=== PATIENT | female | born 1995 | race Caucasian/White ===

== ENCOUNTER 2022-07-16 04:14 | Inpatient (IN) | payer BC ==
[~2022-07-16] VITALS: Ht 160 cm; Wt 68.9 kg
--- NOTE | 2022-07-16 09:49 | PR ---
[facility] [address] [facility] [place], [place] [address] Signed Progress Notes IP Datetime Report Generated by EMERY: 07/16/2022 09:49 PROGRESS NOTES: [id number] Impression: Normal Progression of Labor Procedures: Artificial ROM; Sterile Vag Exam Plan: Continue Present Management VITAL SIGNS: [id number] Vital Signs: Reviewed; Within Normal Limits EXAM: [id number] Dilatation: 4.0 Effacement: 100 Station: -1 Contractions: q 1 to 4 min MEMBRANES: [id number] Comments: Comfortable after epidural. Progressing well. Will continue. FETUS A: [id number] FHR Baseline: 130 Variability: Moderate 6-25bpm Accelerations: 15X15 Decelerations: None FHR Category: Category I Presentation: Vertex Comments on Fetus A: no evidence of metabolic acidosis FETUS B: [id number] Signing Physician: Ana Stout MD Copies: ~ *Electronically Signed* 07/16/22 0949 ANA STOUT MD PATIENT NAME: KATHRINJAYSON MARRERO PROGRESS NOTE DATE OF : [birth year] PHYSICIAN: ANA STOUT MD RPT #: [id number] REPORT IS CONFIDENTIAL AND NOT TO BE RELEASED WITHOUT AUTHORIZATION
--- NOTE | 2022-07-16 12:15 | PR ---
[facility] [address] [facility] [place], [place] [address] Signed Progress Notes IP Datetime Report Generated by CPN: 07/16/2022 12:15 PROGRESS NOTES: [id number] Impression: Reassuring Heart Rate Procedures: Sterile Vag Exam Plan: Continue Present Management Other Plans: more position changes VITAL SIGNS: [id number] Vital Signs: Reviewed; Within Normal Limits EXAM: [id number] Dilatation: 4.0 Effacement: 100 Station: -1 Contractions: q 1 to 4 min MEMBRANES: [id number] Comments: No real progress. Will be more aggressive about position changes. FETUS A: [id number] FHR Baseline: 130 Variability: Moderate 6-25bpm Accelerations: 15X15 Decelerations: None FHR Category: Category I Presentation: Vertex Comments on Fetus A: no evidence of metabolic acidosis FETUS B: [id number] Signing Physician: Ana Stout MD Copies: ~ *Electronically Signed* 07/16/22 1215 ANA STOUT MD PATIENT NAME: JAYSON PINON PROGRESS NOTE DATE OF : [birth year] PHYSICIAN: ANA STOUT MD RPT #: [id number] REPORT IS CONFIDENTIAL AND NOT TO BE RELEASED WITHOUT AUTHORIZATION
--- NOTE | 2022-07-16 17:03 | PR ---
[facility] [address] [facility] [place] [address] Signed Progress Notes IP Datetime Report Generated by CPN: 07/16/2022 17:03 PROGRESS NOTES: [id number] Impression: Reassuring Heart Rate Procedures: Intrauterine Pressure Catheter; Scalp Electrode; Sterile Vag Exam Plan: Augmentation Other Plans: more position changes VITAL SIGNS: [id number] Vital Signs: Reviewed; Within Normal Limits EXAM: [id number] Dilatation: 6.0 Effacement: 100 Station: -2 Contractions: q 1 to 4 min MEMBRANES: [id number] Comments: Slow progress. Suspect contractions are inadequate. Will place IUPC and augment as needed. Will also continue position changes. FETUS A: [id number] FHR Baseline: 130 Variability: Moderate 6-25bpm Accelerations: 15X15 Decelerations: None FHR Category: Category I Presentation: Vertex Comments on Fetus A: no evidence of metabolic acidosis FETUS B: [id number] Signing Physician: Ana Stout MD Copies: ~ *Electronically Signed* 07/16/22 1703 ANA STOUT MD PATIENT NAME: JAYSON PINON PROGRESS NOTE DATE OF : [birth year] PHYSICIAN: ANA STOUT MD RPT #: [id number] REPORT IS CONFIDENTIAL AND NOT TO BE RELEASED WITHOUT AUTHORIZATION
--- NOTE | 2022-07-16 19:52 | PR ---
[facility] [address] [facility] [place], [place] [address] Signed Progress Notes IP Datetime Report Generated by CPN: 07/16/2022 19:52 PROGRESS NOTES: [id number] Impression: Normal Progression of Labor Procedures: Sterile Vag Exam Plan: Augmentation Other Plans: more position changes VITAL SIGNS: [id number] Vital Signs: Reviewed; Within Normal Limits EXAM: [id number] Dilatation: 10.0 Effacement: 100 Station: -1 Contractions: q 1 to 4 min MEMBRANES: [id number] Comments: Progressed well. Will begin pushing. FETUS A: [id number] FHR Baseline: 130 Variability: Moderate 6-25bpm Accelerations: 15X15 Decelerations: None FHR Category: Category I Presentation: Vertex Comments on Fetus A: no evidence of metabolic acidosis FETUS B: [id number] Signing Physician: Ana Stout MD Copies: ~ *Electronically Signed* 07/16/221951 ANA STOUT MD PATIENT NAME: JAYSON PINON PROGRESS NOTE DATE OF : [birth year] PHYSICIAN: ANA STOUT MD RPT #: [id number] REPORT IS CONFIDENTIAL AND NOT TO BE RELEASED WITHOUT AUTHORIZATION
--- NOTE | 2022-07-17 09:03 | PR ---
[facility] [address] [facility] [place] [address] Signed PP Progress Notes Datetime Report Generated by CPN: 07/17/2022 09:02 SUBJECTIVE: [id number] Pain: Within Normal Limits Pain Comments: near fainting last pm Vital Signs: [id number] Vital Signs: Reviewed; Within Normal Limits Cardiovascular: Not Done Respiratory: Not Done Abdomen/Uterus: Abnormal Lochia: Normal Vulva/Perineum: Not Done Breasts: Not Done CVA Tenderness: Not Done Extremities: Normal Incision: Not Applicable Progress: Normal Exam Comments: Fundus firm, NT @ U-1. H/H 8.8/25.5, WBC 16.7, plat 169k IMPRESSION/PLAN/PROCEDURES: [id number] Impression: Normal Progression Plan: Continue Present Management Progress Notes: Doing well overall. Will recheck CBC in am. Signing Physician: Ana Stout MD Copies: ~ *Electronically Signed* 07/17/22901 ANA STOUT MD PATIENT NAME: ROBYN PINONMATTY MARRERO PROGRESS NOTE DATE OF : [birth year] PHYSICIAN: ANA STOUT MD RPT #: [id number] REPORT IS CONFIDENTIAL AND NOT TO BE RELEASED WITHOUT AUTHORIZATION
--- NOTE | 2022-07-18 07:06 | PR ---
[facility] [address] [facility] [place], [place] [address] Signed PP Progress Notes Datetime Report Generated by CPN: 07/18/2022 07:06 SUBJECTIVE: [id number] Pain: Within Normal Limits Pain Comments: near fainting last pm Vital Signs: [id number] Vital Signs: Reviewed; Within Normal Limits Cardiovascular: Not Done Respiratory: Not Done Abdomen/Uterus: Abnormal Lochia: Normal Vulva/Perineum: Not Done Breasts: Not Done CVA Tenderness: Not Done Extremities: Normal Incision: Not Applicable Progress: Normal Exam Comments: Fundus firm, NT @ U-1. H/H 8.4/24.9, WBC 14.2, plat 170k IMPRESSION/PLAN/PROCEDURES: [id number] Impression: Normal Progression Plan: Discharge Procedures: None Progress Notes: Doing well. She is ready for D/C. Signing Physician: Ana Stout MD Copies: ~ *Electronically Signed* 07/18/22705 ANA STOUT MD PATIENT NAME: PINONJAYSON PROGRESS NOTE DATE OF : [birth year] PHYSICIAN: ANA STOUT MD RPT #: [id number] REPORT IS CONFIDENTIAL AND NOT TO BE RELEASED WITHOUT AUTHORIZATION
== END 2022-07-18 11:58 | disposition home or self-care (01) | DRG 807 ==
LOC: FBCO 04:14 → FBC 04:37
PROVIDERS: ADMIT Obstetrics & Gynecology; ATTEND Obstetrics & Gynecology
PROC: 10E0XZZ Delivery of Products of Conception, External Approach (ICD-10-PCS; principal; 2022-07-16)
PROC: 0KQM0ZZ Repair Perineum Muscle, Open Approach (ICD-10-PCS; 2022-07-16)
PROC: 10907ZC Drainage of Amniotic Fluid, Therapeutic from Products of Conception, Via Natural or Artificial Opening (ICD-10-PCS; 2022-07-16)
PROC: 3E0R3BZ Introduction of Anesthetic Agent into Spinal Canal, Percutaneous Approach (ICD-10-PCS; 2022-07-16)
PROC: 00HU33Z Insertion of Infusion Device into Spinal Canal, Percutaneous Approach (ICD-10-PCS; 2022-07-16)
PROC: 10H07YZ Insertion of Other Device into Products of Conception, Via Natural or Artificial Opening (ICD-10-PCS; 2022-07-16)
DX: O48.0 Post-term pregnancy (principal); Z37.0 Single live birth; Z3A.40 40 weeks gestation of pregnancy; O70.1 Second degree perineal laceration during delivery; Z91.040 Latex allergy status; Z20.822 Contact with and (suspected) exposure to COVID-19
CPT/HCPCS: 01960; 36415; 85027; 86850; 86900; 86901; 87502; A9270; J2590; J2795; J3010; J7121; U0003

== ENCOUNTER 2024-03-09 11:21 | Inpatient (IN) | payer OTHER ==
[~2024-03-09] VITALS: Ht 160 cm; Wt 70.3 kg
[2024-03-10] MEDS ORDERED: miSOPROStoL 25 MCG TAB PV SCH
[2024-03-10] MEDS ORDERED: LACTATED RINGER'S 1,000 ML IV SCH
[2024-03-10] MEDS ORDERED: OXYTOCIN 10 UNITS/ML VIAL IM SCH (00:15)
[2024-03-10] MEDS ORDERED: OXYTOCIN/0.9 % SODIUM CHLORIDE 30 UNITS/500 ML BAG IV SCH (00:15)
[2024-03-10] MEDS ORDERED: OXYTOCIN/DEXTROSE 5% 20 UNITS/100 ML BAG IV SCH (00:15)
[2024-03-10] MEDS ORDERED: LACTATED RINGER'S 1,000 ML IV PRN (00:15)
[2024-03-10 00:49] LABS: HEMATOCRIT 32.7 % (35.0-50.0); HEMOGLOBIN 11.4 g/dL (12.0-18.0); MCH 30.1 (27-36); MCHC 34.8 g/dl (30-36); MCV 86.4 fl (81-99); RBC 3.78 M/ul (4.3-5.7); RDW 16.1 (10.5-15.0)
[2024-03-10 01:19] VITALS: BP 102/63
[2024-03-10 01:27] LABS: ABO O; ANTIBODY SCREEN NEGATIVE; RH POSITIVE
[2024-03-10 01:51] LABS: AMPHETAMINES, URINE NEGATIVE (NEGATIVE); BARBITURATES, URINE NEGATIVE (NEGATIVE); BENZODIAZEPINE, URINE NEGATIVE (NEGATIVE); BUPRENORPHINE, URINE NEGATIVE (NEGATIVE); CANNABINOID, URINE NEGATIVE (NEGATIVE); COCAINE, URINE NEGATIVE (NEGATIVE); ECSTASY, URINE NEGATIVE (NEGATIVE); FENTANYL, URINE NEGATIVE (NEGATIVE); METHADONE, URINE NEGATIVE (NEGATIVE); OPIATES, URINE NEGATIVE (NEGATIVE); OXYCODONE, URINE NEGATIVE (NEGATIVE); PHENCYCLIDINE, URINE NEGATIVE (NEGATIVE)
[2024-03-10] MEDS ORDERED: ROPIVACAINE 0.2% 200 ML BAG ONE (12:25)
[2024-03-10] MEDS ORDERED: LIDOCAINE HCL 2% 5 ML SDV ONE (12:25)
[2024-03-10] MEDS ORDERED: BUPIVACAINE HCL 0.25% 10 ML SDV INJ ONE (12:25)
[2024-03-10] MEDS ORDERED: dexmedeTOMIDine HCl 200 MCG/2 ML VIAL ONE (12:25)
[2024-03-10] MEDS ORDERED: LIDOCAINE 2% W/ EPI 1:200,000 20 ML SDV ONE (13:07)
[2024-03-10] MEDS ORDERED: LACTATED RINGER'S 2,000 ML IV ONE (13:45)
[2024-03-10] MEDS ORDERED: ePHEDrine sulfate 5 MG/ML SYRINGE IV PRN (13:45)
[2024-03-10] MEDS ORDERED: LACTATED RINGER'S 500 ML IV PRN (13:45)
[2024-03-10] MEDS ORDERED: ROPIVACAINE 0.2% 200 ML BAG EPIDURAL SCH ×2 (13:45)
[2024-03-10] MEDS ORDERED: ondansetron HCL 4 MG/2 ML VIAL ONE (14:20)
[2024-03-10] MEDS ORDERED: ePHEDrine sulfate 50 MG/ML AMP ONE (14:21)
--- NOTE | 2024-03-10 15:07 | PR ---
[facility] [address] [place], [place] [address] Signed Progress Notes IP Datetime Report Generated by CPN: 03/10/2024 15:07 PROGRESS NOTES: [id number] Impression: Normal Progression of Labor; Reassuring Heart Rate Procedures: Sterile Vag Exam Plan: Anticipate Vaginal Delivery Informed Consent Obtain: Vaginal Delivery VITAL SIGNS: [id number] Vital Signs: Reviewed; Within Normal Limits EXAM: [id number] Dilatation: 10.0 Effacement: 100 Station: 1 Contractions: q 2-3 min MEMBRANES: [id number] Comments: Pt seen and examined. Doing well. More comfortable, but complainig of increase pressure and "buring in my hips." On exam, complete +1 station. Will prepare for FETUS A: [id number] FHR Baseline: 120 Variability: Minimal - >Undetectable to <=5bpm Accelerations: 15X15 Decelerations: None FHR Category: Category II Presentation: Vertex Comments on Fetus A: No evidence of metabolic acidosis FETUS B: [id number] Signing Physician: Gifty Rivera DO Copies: ~ *Electronically Signed* 03/10/24 7865 GIFTY RIVERA (RUBY) DO PATIENT NAME: JAYSON PINON PROGRESS NOTE DATE OF : [birth year] PHYSICIAN: GIFTY RIVERA) DO RPT #: [id number] REPORT IS CONFIDENTIAL AND NOT TO BE RELEASED WITHOUT AUTHORIZATION
[2024-03-10] MEDS ORDERED: ACETAMINOPHEN 325 MG TAB PO PRN (15:45)
[2024-03-10] MEDS ORDERED: MAGNESIUM HYDROXIDE/AL HYDROX 30 ML CUP PO PRN ×2 (15:45)
[2024-03-10] MEDS ORDERED: OXYCODONE HCL 5 MG TAB PO PRN (15:45)
[2024-03-10] MEDS ORDERED: CALCIUM CARBONATE 500 MG CHEW PO PRN ×2 (15:45)
[2024-03-10] MEDS ORDERED: WITCH HAZEL/GLYCERIN 1 EA PAD TOP PRN (15:45)
[2024-03-10] MEDS ORDERED: MAGNESIUM HYDROXIDE 30 ML UDC PO PRN (15:45)
[2024-03-10] MEDS ORDERED: OXYCODONE/APAP 5/325 TAB PO PRN (15:45)
[2024-03-10] MEDS ORDERED: HYDROCORTISONE ACETATE 25 MG SUPP PR PRN (15:45)
[2024-03-10] MEDS ORDERED: HYDROCODONE/ACETA 5/325 TAB PO PRN (15:45)
[2024-03-10] MEDS ORDERED: IBUPROFEN 600 MG TAB PO PRN (15:45)
[2024-03-10] MEDS ORDERED: BENZOCAINE 60 ML AEROSOL TOP PRN (15:45)
[2024-03-10] MEDS ORDERED: OXYTOCIN/0.9 % SODIUM CHLORIDE 500 ML IV SCH (15:45)
[2024-03-10] MEDS ORDERED: ePHEDrine KIT FOR FBC IV ONE (17:34)
[2024-03-10 17:42] LABS: BASOPHILS 0.6 % (0-2); EOSINOPHILS 0.1 % (0-6); HEMOGLOBIN 11.8 g/dL (12.0-18.0); LYMPHOCYTES 8.1 % (24-44); MCH 29.1 (27-36); MCHC 32.9 g/dl (30-36); MCV 88.6 fl (81-99); NEUTROPHILS 88.2 % (39-80); PLATELET COUNT 224 K/uL (140-440); RBC 4.07 M/ul (4.3-5.7); RDW 16.3 (10.5-15.0)
--- NOTE | 2024-03-10 17:46 | PR ---
[facility] [address] [place], [place] [address] Signed PP Progress Notes Datetime Report Generated by CPN: 03/10/2024 17:46 SUBJECTIVE: [id number] Pain: Within Normal Limits Pain Comments: Sycopal episode Nausea/Vomiting: Denies Flatus: Yes Bowel Movement: No Vital Signs: [id number] Vital Signs: Reviewed Notable Details: Hypotensive Cardiovascular: Normal Respiratory: Normal Abdomen/Uterus: Normal Lochia: Normal Vulva/Perineum: Normal Breasts: Not Done CVA Tenderness: Not Done Extremities: Normal Incision: Not Applicable Progress: Not Applicable Exam Comments: Fundus firm U-2 nontender. EKG sinus rhythm. No bruising / trauma. Normal lochia IMPRESSION/PLAN/PROCEDURES: [id number] Other Impression: syncope Progress Notes: Called to pts room. Pt up to use restroom, when suddenly felt warm and faint. RN with patient when brief syncope while on comode. No fall. Normal lochia. No chest pain. Rapid response was called. EKG sinus rythm. Pt feeling better. BP shows hypotension. CBC, CMP, fibrinogen, PT/INT PTT ordered and pending. IV fluid bolus started. Will reinsert ardon overnight. Pt given dose of ephedrine 10mg po daily. Will continue to monitor closely Signing Physician: Gifty Rivera DO Copies: ~ *Electronically Signed* 03/10/24 4709 GIFTY RIVERA (RUBY) DO PATIENT NAME: JAYSON PINONZABETH PROGRESS NOTE DATE OF : [birth year] PHYSICIAN: GIFTY RIVERA (JD) DO RPT #: [id number] REPORT IS CONFIDENTIAL AND NOT TO BE RELEASED WITHOUT AUTHORIZATION
[2024-03-10 17:53] LABS: INR 0.99 (0.80-1.30); PARTIAL THROMBOPLASTIN TIME 27.8 Sec (22.9-41.3); PROTIME 12.4 Sec (11.2-14.2)
[2024-03-10 17:57] LABS: ALBUMIN 2.4 g/dL (3.4-5.0); ALBUMIN/GLOBULIN RATIO 0.57 (1.1-2.4); ANION GAP 13.2 (7-21); BILIRUBIN, TOTAL 0.7 ng/dL (0.2-1.0); BUN/CREATININE RATIO 7.31 (6.0-28.6); CALCIUM 8.5 mg/dL (8.5-10.1); CREATININE, SERUM 0.82 mg/dL (0.55-1.02); POTASSIUM 3.2 mmol/L (3.5-5.1); PROTEIN, TOTAL 6.6 g/dL (6.4-8.2)
--- NOTE | 2024-03-10 18:02 | NUR ---
Rapid responce call, pt had an ekg ordered , that was performed , some oxygen via oxymask provided pt was feeling like she had to remind herself to breath , spo2 100%, rr 20, hr 112. Pt bs were clear throughout . pt did still look pale , and had sensation that breathing is harder than normal. RN at bedside and Dr Rivera in room doing assessment on arrival. RN will call id the patient had any futher feeling or change in vitals.
[2024-03-10] MEDS ORDERED: SENNOSIDES/DOCUSATE 1 EA TAB PO SCH (21:00)
[2024-03-11 05:27] LABS: HEMOGLOBIN 10.9 g/dL (12.0-18.0)
[2024-03-11 05:29] LABS: HEMATOCRIT 32.3 % (35.0-50.0); MCH 29.7 (27-36); MCHC 33.8 g/dl (30-36); MCV 87.9 fl (81-99); RBC 3.67 M/ul (4.3-5.7); RDW 16.3 (10.5-15.0)
--- NOTE | 2024-03-11 11:57 | PR ---
[facility] [address] [facility] [place], [place] [address] Signed PP Progress Notes Datetime Report Generated by CPN: 03/11/2024 11:57 SUBJECTIVE: [id number] Pain: Within Normal Limits Pain Comments: Sycopal episode Nausea/Vomiting: Denies Flatus: Yes Bowel Movement: No Vital Signs: [id number] Vital Signs: Reviewed; Within Normal Limits Notable Details: Hypotensive Cardiovascular: Normal Respiratory: Normal Abdomen/Uterus: Normal Lochia: Normal Vulva/Perineum: Not Done Breasts: Not Done CVA Tenderness: Normal Extremities: Normal Incision: Not Applicable Progress: Normal Exam Comments: Fundus firm U-2 nontender. IMPRESSION/PLAN/PROCEDURES: [id number] Impression: Normal Progression Other Impression: syncope Plan: Continue Present Management Progress Notes: Pt seen and examined. Doing welll. Ambulating, voiding, and tolerating full diet. Pain and lochia minimal. No additional presyncopal symptoms. No concerns. Anticipate d/c home tomorrow. [place] out this AM Signing Physician: Gifty Rivera DO Copies: ~ *Electronically Signed* 03/11/24 2077 GIFTY RIVERA (RUBY) DO PATIENT NAME: JAYSON PINON PROGRESS NOTE DATE OF : [birth year] PHYSICIAN: GIFTY RIVERA) DO RPT #: [id number] REPORT IS CONFIDENTIAL AND NOT TO BE RELEASED WITHOUT AUTHORIZATION
--- NOTE | 2024-03-11 19:32 | EKG ---
[facility] [address] [facility] [place], [place] [address] Signed Normal sinus rhythm with sinus arrhythmia Normal ECG No previous ECGs available Confirmed by JEANNETTE WILDE MD ([id number]) on 03/11/2024 7:31:47 PM Electronically Signed By: JEANNETTE WILDE 03/11/24 193 PATIENT NAME: ROBYN PINONMATTY MARRERO Electrocardiogram DATE OF : [birth year] PHYSICIAN: JEANNETTE WILDE REPORT #: [id number] REPORT IS CONFIDENTIAL AND NOT TO BE RELEASED WITHOUT AUTHORIZATION
--- NOTE | 2024-03-12 07:25 | PR ---
[facility] [address] [place], [place] [address] Signed PP Progress Notes Datetime Report Generated by CPN: 03/12/2024 07:25 SUBJECTIVE: [id number] Pain: Within Normal Limits Pain Comments: Sycopal episode Nausea/Vomiting: Denies Flatus: Yes Bowel Movement: No Vital Signs: [id number] Vital Signs: Reviewed; Within Normal Limits Notable Details: Hypotensive Cardiovascular: Normal Respiratory: Normal Abdomen/Uterus: Normal Lochia: Normal Vulva/Perineum: Not Done Breasts: Not Done CVA Tenderness: Normal Extremities: Normal Incision: Not Applicable Progress: Normal Exam Comments: Fundus fim U-2 nontender IMPRESSION/PLAN/PROCEDURES: [id number] Impression: Normal Progression Other Impression: syncope Plan: Discharge Progress Notes: Pt seen and examined. Doing well. Ambulating, voiding, and tolerating full diet. No addiitonal lightheadedness or other concerns. Desires d/c home. Reviewed d/c instructions and medications. Discharge home. Planning natural family planning for contraception. All questions answered. Signing Physician: Gifty Rivera DO Copies: ~ *Electronically Signed* 03/12/24 0712 GIFTY RIVERA (RUBY) DO PATIENT NAME: JAYSON PINON PROGRESS NOTE DATE OF : [birth year] PHYSICIAN: GIFTY RIVERA) DO RPT #: [id number] REPORT IS CONFIDENTIAL AND NOT TO BE RELEASED WITHOUT AUTHORIZATION
== END 2024-03-12 12:15 | disposition home or self-care (01) | DRG 807 ==
LOC: FBC 03-10 → MS 03-10 20:33 → FBC 03-10 21:36
PROVIDERS: ADMIT Obstetrics & Gynecology; ATTEND Obstetrics & Gynecology
PROC: 10E0XZZ Delivery of Products of Conception, External Approach (ICD-10-PCS; principal; 2024-03-10)
PROC: 3E0R3BZ Introduction of Anesthetic Agent into Spinal Canal, Percutaneous Approach (ICD-10-PCS; 2024-03-10)
PROC: 00HU33Z Insertion of Infusion Device into Spinal Canal, Percutaneous Approach (ICD-10-PCS; 2024-03-10)
DX: O48.0 Post-term pregnancy (principal); Z37.0 Single live birth; O76 Abnormality in fetal heart rate and rhythm complicating labor and delivery; O99.893 Other specified diseases and conditions complicating puerperium; R55 Syncope and collapse; O69.81X0 Labor and delivery complicated by cord around neck, without compression, not applicable or unspecified; Z3A.41 41 weeks gestation of pregnancy
CPT/HCPCS: 01960; 36415; 80053; 80307; 85025; 85027; 85384; 85610; 85730; 86850; 86900; 86901; 93005; 93010; A9270; J2001; J2405; J2590; J2795; J7121

== ENCOUNTER 2025-04-27 07:50 | Day surgery (SDC) | payer OTHER ==
[~2025-04-27] VITALS: Ht 160 cm; Wt 56.0 kg
[~2025-04-27 07:50] MED LIST: IBLOOD GLUCOSE TEST STRIP 1 EA TEST VI PRN; LACTATED RINGER'S 1,000 ML IV SCH; LIDOCAINE HCL 1% 5 ML SDV INJ ONE; OMEPRAZOLE20 MG PO; PRENATAL TABLE1 EACH PO
[2025-04-27 08:06] VITALS: BP 109/65
[2025-04-27] MEDS ORDERED: LIDOCAINE HCL 2% 5 ML SDV ONE (09:16)
[2025-04-27 10:28] VITALS: BP 103/66
--- NOTE | 2025-04-27 10:44 | NUR ---
04/27/25 1044 Toshia Bojorquez 8429 PT ARRIVED TO PACU ON RA AND ASLEEP. RESP EVEN AND UNLABORED.
--- NOTE | 2025-04-28 08:47 | OR ---
[facility] [address] [place] [address] Signed DATE OF OPERATION: 04/27/2025 SURGEON: Alma Rosa Eason DO PREOPERATIVE DIAGNOSIS: Colon cancer screening for strong family history of colon cancer. POSTOPERATIVE DIAGNOSIS: Colon cancer screening for strong family history of colon cancer with nonspecific colitis. PROCEDURE PERFORMED: Colonoscopy. ANESTHESIA: IV sedation. ESTIMATED BLOOD LOSS: None. DRAINS: None. COMPLICATIONS: None. DESCRIPTION OF THE PROCEDURE: The patient was brought to the GI lab and placed in supine position. After satisfaction of anesthesia, she was placed on the left lateral position and padded. The Olympus Video Colonoscope was then introduced into the anus while under direct visualization and insufflation, the scope was then advanced through the rectosigmoid, sigmoid colon, descending colon, transverse colon, ascending colon into the cecum. While keeping the colon insufflated, the mucosa surface was visualized. The ascending colon and cecum had no intrinsic or extrinsic masses appreciated. Some nonspecific colitis was noted. No ulcerations were noted. Scope was brought back past hepatic flexure into the transverse colon. No intrinsic or extrinsic masses were noted. No lesions or ulcerations were appreciated. Some nonspecific colitis was noted as well but no ulceration noted. Scope was then brought back to the splenic flexure to the descending colon. No intrinsic or extrinsic masses were appreciated. Some nonspecific colitis was present as well. Scope was brought back into the sigmoid colon and rectosigmoid. No intrinsic or extrinsic Electronically Signed By: ALMA ROSA EASON DO 04/28/25 0847 PATIENT NAME: JAYSON PINON OPERATIVE REPORT DATE OF : [birth year] REPORT #: [id number] PHYSICIAN: ALMA ROSA EASON DO PCP: ALMA ROSA RALPH MD REPORT IS CONFIDENTIAL AND NOT TO BE RELEASED WITHOUT AUTHORIZATION [facility] [address] [place], [place] [address] Signed masses, no lesions or ulcerations were noted. Some nonspecific colitis was noted here as well. Rectosigmoid has nonspecific colitis, but no other intrinsic or extrinsic masses noted. The scope was then withdrawn. The patient tolerated the procedure well and to recovery room in satisfactory condition. DO ANA Crespo/ESTEPHANIA /[id number] Copies: ~ Electronically Signed By: ALMA ROSA EASON DO 04/28/25 0847 PATIENT NAME: JAYSON PINON OPERATIVE REPORT DATE OF : [birth year] REPORT #: [id number] PHYSICIAN: ALMA ROSA EASON DO PCP: ALMA ROSA RALPH MD REPORT IS CONFIDENTIAL AND NOT TO BE RELEASED WITHOUT AUTHORIZATION
== END 2025-04-27 10:48 | disposition home or self-care (01) ==
LOC: DS 07:50
PROVIDERS: ATTEND Surgery
PROC: 0DJD8ZZ Inspection of Lower Intestinal Tract, Via Natural or Artificial Opening Endoscopic (ICD-10-PCS; principal; 2025-04-27 10:10)
DX: Z12.11 Encounter for screening for malignant neoplasm of colon (principal); K52.9 Noninfective gastroenteritis and colitis, unspecified; Z91.040 Latex allergy status; Z91.09 Other allergy status, other than to drugs and biological substances; Z80.0 Family history of malignant neoplasm of digestive organs
CPT/HCPCS: 00812; 84703; J2003; J2704